=== PATIENT | male | born 1950 | race Caucasian/White ===

== ENCOUNTER 2023-02-13 11:29 | Outpatient (REF) | payer OTHER, SELFPAY | END 2023-02-13 11:30 | disposition home or self-care (01) | LOC: HO.MRI 11:29 | PROVIDERS: PCP Internal Medicine; Visit Provider Physician Assistant | DX: Z13.89 Encounter for screening for other disorder (principal) ==

== ENCOUNTER 2023-03-31 12:54 | Outpatient (REF) | payer BC, SELFPAY ==
--- NOTE | ~2023-03-31 | US_ITS ---
EXAMINATION: US EXTRACRANIAL CAROTID DUPLEX, BILATERAL CLINICAL INFORMATION: Neck pain with history of coronary artery disease. COMPARISON: None available. TECHNIQUE: Real-time ultrasound and Doppler techniques (integrating B-mode 2-D vascular images, Doppler spectral analysis and color-flow Doppler imaging) were utilized to interrogate the extracranial carotid arteries, the vertebral arteries and proximal subclavian arteries bilaterally. The degree of stenosis is determined by criteria similar to NASCET. FINDINGS: Right Side: 1. There is mild atherosclerotic plaque seen in the bifurcation/proximal ICA region. 2. The common carotid artery PSV proximally is 133 cm/s and distally 82 cm/s. 3. The proximal internal carotid artery velocities are 87 cm/s systolic and 27 cm/s diastolic. 4. The proximal external carotid artery PSV is 110 cm/s. 5. The vertebral artery shows antegrade flow. 6. The subclavian artery waveforms are normal. Left Side: 1. There is no atherosclerotic plaque seen in the bifurcation/proximal ICA region. 2. The common carotid artery PSV proximally is 104 cm/s and distally 88 cm/s. 3. The proximal internal carotid artery velocities are 80 cm/s systolic and 20 cm/s diastolic. 4. The proximal external carotid artery PSV is 103 cm/s. 5. The vertebral artery shows antegrade flow. 6. The subclavian artery waveforms are normal. US/US carotid duplex BI IMPRESSION: 1. RIGHT: Minimal, non-hemodynamically significant stenosis of the proximal right internal carotid artery corresponding to a 0-49% stenosis by velocity criteria. 2. LEFT: Normal left internal carotid artery without atherosclerotic plaque or hemodynamically significant stenosis.
== END 2023-03-31 12:55 | disposition home or self-care (01) ==
LOC: HO.US 12:54
PROVIDERS: PCP Internal Medicine; Visit Provider Internal Medicine
DX: I25.10 Atherosclerotic heart disease of native coronary artery without angina pectoris (principal); I65.21 Occlusion and stenosis of right carotid artery; M54.2 Cervicalgia
CPT/HCPCS: 93880

== ENCOUNTER 2024-03-22 10:00 | Outpatient (REF) | payer OTHER, SELFPAY ==
--- NOTE | ~2024-03-22 | US_ITS ---
EXAMINATION: US RETROPERITONEAL COMPLETE (RENAL) CLINICAL INFORMATION: Calculus of ureter. COMPARISON: None available. TECHNIQUE: Real-time imaging of the kidneys and bladder. FINDINGS: RIGHT KIDNEY: 12.3 x 5.7 x 6.3 cm (SAG x AP x TRV). The kidney is normal in size, contour, and echogenicity. Renal cortical thickness is normal. No renal calculi or hydronephrosis. A tiny lower perinephric fluid collection is noted. There are benign, simple cysts, the largest at the upper pole measuring 1.0 cm. These require no imaging follow-up. LEFT KIDNEY: 12.3 x 4.0 x 4.4 cm (SAG x AP x TRV). The kidney is normal in size and echogenicity. There are persistent lobulations. Renal cortical thickness is normal. No calculi or focal parenchymal lesions. No hydronephrosis. BLADDER: Well distended and normal. Bilateral ureteral jets are demonstrated. Prevoid bladder volume is 147.6 mL. Postvoid bladder volume is 15.0 mL. ADDITIONAL FINDINGS: Prostate dimensions are 6.5 x 5.2 x 5.4 cm (volume 4.6 mL). US/US retroperitoneal comp IMPRESSION: 1. A tiny lower right perinephric fluid collection is seen. 2. No renal mass, calculus or hydronephrosis is seen bilaterally. 3. There is prostatomegaly.
== END 2024-03-22 10:01 | disposition home or self-care (01) ==
LOC: HO.US 10:00
PROVIDERS: PCP Internal Medicine; Visit Provider Urology
DX: N20.1 Calculus of ureter (principal)
CPT/HCPCS: 76770

== ENCOUNTER 2025-02-09 14:25 | Outpatient (AMB) | payer MEDICARE, BC, SELFPAY ==
--- NOTE | 2025-02-09 13:44 | MHC.PC.OV ---
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 Accompanied by: Self / Same As Patient Allergies No Known Allergies [No Known Allergies*] Allergy (Verified 02/09/25 13:45) Tobacco use date assessed: 02/09/25 Fall risk assessment: 1 Fall in past year Last assessed Fall Risk: 02/09/25 Dental Screening Dental Screen Date: 02/09/25 Did you have a dental visit in the last 12 months?: Yes Did you have a dental problem in the last 6 months where you did not have access to dental care?: No HPI HPI Comments History of Present Illness Details The patient is a 74 year old male with a past medical history of CAD, htn, hld, BPH, cervical ddd, PTSD, insomnia presenting for follow up. Last seen by pcp in Sep. Also follows at [facility]. 100% disability. PCP Miladys Roche CV: on fenofibrate. Follows with cardiology. CAD h/o [place] in 1993. Followed previously with Dr Kirk, then [place]. Recent nuclear stress test. Latest Dr Thompson. Would like referral to cardiology Would like referral to neurology for bilateral upper extremity neuropathy. History of trauma to the neck in [place]. Chronic neck pain. [place]. Agent orange exposure BPH: on tamsulosin. Follows with Dr Monroe and Brina. MSK: on allopurinol, colchicine Colonoscopy 12/30/2017-5 years ROS see HPI PHYSICAL EXAM: GENERAL: Alert and oriented x 3. NAD EYES: EOMI. Anicteric. HENT: Moist mucous membranes. No scleral icterus. No cervical lymphadenopathy. LUNGS: Clear to auscultation bilaterally. CARDIOVASCULAR: Regular rate and rhythm. No murmur. No JVD. ABDOMEN: Soft, non-tender +bs EXTREMITIES: No edema. Non-tender. SKIN: No rashes or lesions. Warm. NEUROLOGIC: No focal neurological deficits. CN II-XII grossly intact PSYCHIATRIC: Cooperative. Appropriate mood and affect [facility] Medical History Cervical radiculopathy at C5 Surgical History History of colonoscopy (~12/30/17) Family History Mother No problems noted. Father No problems noted. Social History Housing: Apartment Patient Tobacco Use Status: Former Tobacco user e-Cigarette/Vaping Use: Former Use service: No Current occupational status: retired Cognitive needs: No Hearing needs: No Vision needs: Yes (rx glasses) Questionnaire PHQ-9 Over the last 2 weeks, how often have you been bothered by any of the following problems? 1. Little interest or pleasure in doing things: not at all 2. Feeling down, depressed, or hopeless: not at all 3. Trouble falling or staying asleep, or sleeping too much: not at all 4. Feeling tired or having little energy: not at all 5. Poor appetite or overeating: not at all 6. Feeling bad about yourself - or that you are a failure or have let yourself or your family down: not at all 7. Trouble concentrating on things, such as reading the newspaper or watching television: not at all 8. Moving or speaking so slowly that other people could have noticed. Or the opposite - being so fidgety or restless that you have been moving around a lot more than usual: not at all 9. Thoughts that you would be better off or of hurting yourself in some way: not at all Total score: 0 Source: Developed by Drs. Srinath Collins, Abbey Rico, Sulaiman Estrada and colleagues, with an educational gavino from [employer]. Thrive Questionnaire Date Thrive assessed: 02/09/25 I am a: Patient Within the past 12 months, did the food you bought not last and you didn't have the money to get more?: Never true Within the past 12 months, did you worry whether your food would run out before you got money to buy more?: Never true Do you have trouble paying for medicines?: No Do you have trouble getting transportation to medical appointments?: No Do you have trouble paying your heating and electricity bill?: No Do you have trouble taking care of your child, family member or friend?: No Do you have trouble with day-to-day activities such as bathing, preparing meals, shopping, managing finances, etc.?: No Are you currently unemployed and looking for a job?: No Are you interested in more education?: No THRIVE Score: 0 AUDIT C Alcohol Use Questionnaire (AUDIT-C) 1. How often do you have a drink containing alcohol?: Monthly or less 2. How many drinks containing alcohol do you have on a typical day when you are drinking?: 1 or 2 3. How often do you have six or more drinks on one occasion?: Less than monthly Total Score: 2 IVORY-7 AMB Questionnaire IVORY-7 Date IVORY - 7 assessed: 02/09/25 Feeling nervous, anxious, or on edge: 0 = Not at all Not being able to stop or control worryin = Not at all Worrying too much about different things: 0 = Not at all Trouble relaxin = Not at all Being so restless that it is hard to sit still: 0 = Not at all Becoming easily annoyed or irritable: 0 = Not at all Feeling afraid as if something awful might happen: 0 = Not at all Total IVORY-7 score (0-4 normal; 5-9 mild; 10-14 moderate; 15-21 severe): 0 Source: Developed by Drs. Srinath Collins, Abbey Rico, Sulaiman Estrada and colleagues, with an educational gavino from [employer]. Physical exam (Primary Care) Vital Signs: Last Vital Signs Temp 98.7 F 02/09/25 14:28 Pulse 59 02/09/25 14:28 BP 120/70 02/09/25 14:28 Pulse Ox 97 02/09/25 14:28 Oxygen Delivery Method Room Air 02/09/25 14:28 BMI result Body Mass Index 28.9 Tobacco/Smoking Status: Tobacco use Status Tobacco use date assessed 02/09/25 02/09/25 13:46 Patient Tobacco Use Status Former Tobacco user 02/09/25 14:38 e-Cigarette/Vaping Use Former Use 02/09/25 14:38 PHQ-9: PHQ-9 Score PHQ-9: Total score 0 02/10/25 08:57 Thrive Assessment: Date of Thrive Assessment Date Thrive assessed 02/09/25 02/09/25 13:46 Coding Level of Care Code New Pt Level 4 (19642) Complex EM visit Add On G2211 Diagnoses Benign prostatic hyperplasia, unspecified whether lower urinary tract symptoms present N40.0 Lower urinary tract symptom presence: unspecified whether lower urinary tract symptoms present History of [place] (myocardial infarction) I25.2 Coronary artery disease involving [place] coronary artery of [place] heart without angina pectoris I25.10 Associated angina: without angina Coronary Disease-Associated Artery/Lesion type: [place] artery [place] vs. transplanted heart: chickaloon heart Cervical radiculopathy at C5 M54.12 Numbness and tingling of both upper extremities R20.0; R20.2 Abnormal nuclear stress test R94.39 Assessment & Plan Assessment & Plan (1) BPH (benign prostatic hyperplasia): Code(s): N40.0 - Benign prostatic hyperplasia without lower urinary tract symptoms Category: Medical Qualifiers: Lower urinary tract symptom presence: unspecified whether lower urinary tract symptoms present Qualified Code(s): N40.0 - Benign prostatic hyperplasia without lower urinary tract symptoms (2) History of [place] (myocardial infarction): Code(s): I25.2 - Old myocardial infarction Category: Medical (3) CAD (coronary artery disease): Code(s): I25.10 - Atherosclerotic heart disease of [place] coronary artery without angina pectoris Category: Medical Qualifiers: Associated angina: without angina Coronary Disease-Associated Artery/Lesion type: [place] artery [place] vs. transplanted heart: [place] heart Qualified Code(s): I25.10 - Atherosclerotic heart disease of [place] coronary artery without angina pectoris (4) Cervical radiculopathy at C5: Code(s): M54.12 - Radiculopathy, cervical region Category: Medical (5) Numbness and tingling of both upper extremities: Code(s): R20.0 - Anesthesia of skin; R20.2 - Paresthesia of skin Category: Medical (6) Abnormal nuclear stress test: Code(s): R94.39 - Abnormal result of other cardiovascular function study Category: Medical Plan 74 year old to establish care Past medical, surgical, social records that were available reviewed. [facility] at the [facility] and [facility] Chronic bilateral upper extremity neuropathy-referral to neurology placed Referral to cardiology placed Chronic medical conditions stable Continues urology follow up Orders: Referrals Cardiology Referral I25.10 - Atherosclerotic heart disease of [place] coronary artery without angina pectoris, I25.2 - Old myocardial infarction, R94.39 - Abnormal result of other cardiovascular function study Neurology Referral R20.0 - Anesthesia of skin, R20.2 - Paresthesia of skin
[2025-02-09 14:28] VITALS: BP 120/70; PULSE 59; TEMP 37.1; O2SAT 97; BMI 28.9
--- OUTSIDE RECORDS SUMMARY | 2025-02-09 17:04 | XMS_ITS | Patient Health Record ---
Author Organization [facility] Address [address] [place] [address] Care Team Providers Care Cash Register Servicer Name Role Phone Oriana Naranjo M.D. Primary Care Provider Unavail able Srinath Santamaria Unavailable [phone] Andrea Roche MD Unavailable Unavailable Reason For Referral No Information Medications Medication SIG (Take, Route, Frequency, Duration) Notes Start Date End Date Status Finasteride 5 MG 1 tablet Orally Once a day Active Tamsulosin HCl 0.4 MG 1 capsule Orally O nce a day Active Venlafaxine HCl 75 MG 1 tablet with food Orally Once a day Active Allopurinol 300mg Ac tive Aspir-81 81mg Active Atorvastatin Calcium 80mg Active Fenofibrate 48mg Act estephanie Lisinopril 5mg Activ e Metoprolol Tartrate 100mg Active Sildenafil Citrate 100mg Active traZODone HCl 100mg Active Omeprazole 20mg Acti ve Social History Alcohol Screen Question Answer Notes Did you have a drink contain ing alcohol in the past year? Yes How often did you have a dri nk containing alcohol in the past year? 2 to 4 times a month (2 points) How many drinks did you have on a typical day when you were drinking in the past year? 5 or 6 drinks (2 points) How often did you have 6 or more drinks on one occasion in the past year? Monthly (2 points) Points 6 Interpretation Positive Section Notes: Nonsmoker; 6 pack of beer on Fri/Sat Nonsmoker; some beer on the weekends Problems Problem Type SNOMED Code ICD Code Onset Dates Problem Status W/U Status Risk Notes Problem 462278256 Encounter for screening for malignant neoplasm of colon (Z12.11) Active confirmed Problem 799354859 History of adenomatous polyp of colon (Z86.010) Active confirmed Problem 321234364 Long-term use of aspirin therapy (Z79.82) Active confirmed Plan Of Treatment Future Test Test Name Order Date UPPER GI ENDOSCOPY BALLOOON DILATION OF ESOPH 06/04/2012 COLONOSCOPY 06/04/2012 COLONOSCOPY 10/29/2017 Next Appt Details Provider Name:Srinath Santamaria , 02/28/2025 09:50:00 AM, [address] [facility], [address], [place], [address], Insurance Providers Payer Name Payer Address Payer Phone Subscriber Number Group Number Insured Name Patient Relationship to Insured Coverage Start Date Coverage End Date [place] [address] [place] [id number] OSBORNJONE Hernandez Self - patient is the insured [facility] [address] [place], [place] [id number] [phone] [id number] JONE OSBORN Self - patient is the insured Medical (General) History Medical History History ICD Code Tubular adenomas removed in 1997 and 07/2012; he had a negative colonoscopy in 1994; he had hyperplastic polyps removed in 2000 and in 2006--- also noted to have diverticulosis, hemorrhoids and a cecal angiodysplasia GERD--EGD with balloon dilat ion in 2011--hiatal hernia--- no esophageal stricture or ring, mild gastritis with biopsies negative for H. pylori--no esophagitis or Cobb's esophagus HI 1993, then a coronary art claire stent placed in 2007-fine since, and he is followed by Dr. Tapia Hypertension Denies DM,CVA,Lung disease,renal disease Gout Hyperlipidemia Anxiety--PTSD from [place]--wounded by a rtillery Sleep apnea--starting CPAP in 10/2017 BPH Surgical History Surgery Date(Month/Year)
== END 2025-02-09 15:11 | disposition home or self-care (01) ==
LOC: HO.HMCHD 14:25
PROVIDERS: PCP Internal Medicine; Visit Provider Internal Medicine
DX: N40.0 Benign prostatic hyperplasia without lower urinary tract symptoms (principal); I25.2 Old myocardial infarction; I25.10 Atherosclerotic heart disease of native coronary artery without angina pectoris; M54.12 Radiculopathy, cervical region; R20.0 Anesthesia of skin; R20.2 Paresthesia of skin; R94.39 Abnormal result of other cardiovascular function study

== ENCOUNTER → 2025-02-09 14:25 | Outpatient (BNVA) | payer OTHER, SELFPAY | PROVIDERS: PCP Internal Medicine; Visit Provider Internal Medicine | DX: N40.0 Benign prostatic hyperplasia without lower urinary tract symptoms (principal); I25.2 Old myocardial infarction; I25.10 Atherosclerotic heart disease of native coronary artery without angina pectoris; M54.12 Radiculopathy, cervical region; R20.0 Anesthesia of skin; R20.2 Paresthesia of skin; R94.39 Abnormal result of other cardiovascular function study | CPT/HCPCS: 99202 ==

== ENCOUNTER 2025-05-01 13:24 | Outpatient (AMB) | payer BC, OTHER, SELFPAY ==
[2025-05-01 13:33] VITALS: BP 130/74; PULSE 57; BMI 28.9
--- NOTE | 2025-05-01 13:33 | MHC.OFFVIS ---
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 Stand Grinder Required: No Accompanied by: Self / Same As Patient Allergies No Known Allergies (No Known Allergies*) Allergy (Verified 02/09/25 13:45) Medication List - Last Reconciled 05/01/25 by Ashu Norwood MD allopurinol 100 mg PO DAILY aspirin (Adult Low Dose Aspirin) 81 mg PO DAILY atorvastatin (Lipitor) 80 mg PO BEDTIME colchicine 0.6 mg PO DAILY fenofibrate nanocrystallized 48 mg PO DAILY hydroxyzine pamoate mg PO lisinopril 5 mg PO DAILY methocarbamol 750 mg PO BID PRN metoprolol succinate ER 100 mg PO BID omeprazole 20 mg PO DAILY sildenafil (Viagra) 100 mg PO DAILY PRN testosterone 1 tube transdermal QAM trazodone 50 mg PO BEDTIME PRN HPI Comments Details: [age] year gentleman who is here for 1st office visit. He was previously seen Dr. Misha taylor and underwent angioplasty in 1993 and PCI to right coronary artery in 2006. 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 He said his presentation for ACS was indigestion like feeling which he has not experienced since then. He is physically quite active and walks 4 miles per day. He also does uphill walk and hike. He is saying he has no chest discomfort, indigestion like feeling or dyspnea. He recently underwent exercise stress testing at [facility] where he was able to exercise to 10 metabolic equivalents and had some ischemic appearing EKGs changes reportedly. He has nuclear perfusion imaging showed small inferolateral ischemia and infarct. In his day-to-day life he has no symptoms currently. He is taking aspirin regularly. He is on atorvastatin 80 mg his last LDL was 70. [facility] Medical History (Updated 05/01/25 @ 20:21 by Ashu Norwood MD) Cervical radiculopathy at C5 Surgical History (Updated 05/01/25 @ 13:44 by Chey Scanlon [facility]) Stented coronary artery History of colonoscopy (~12/30/17) Family History Mother No problems noted. Father No problems noted. 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) Housing: Apartment Alcohol intake: never Patient Tobacco Use Status: Former Tobacco user e-Cigarette/Vaping Use: Former Use service: No Current occupational status: retired Cognitive needs: No Hearing needs: No Vision needs: Yes (rx glasses) Review of Systems Const Denies chills, Denies fatigue, Denies fever(s), Denies frequent falls, Denies weakness, Denies weight gain and Denies weight loss ENT Denies dizziness Card Denies chest pain, Denies leg edema, Denies lightheadedness, Denies palpitations, Denies dyspnea, Denies dyspnea on exertion and Denies orthopnea Resp Denies cough, Denies dyspnea and Denies dyspnea on exertion GI Denies bloating and Denies change in bowel habits Musc Denies muscle weakness, Denies numbness and Denies tingling Neuro Denies dizziness, Denies frequent falls, Denies numbness, Denies tingling and Denies weakness Endo Denies fatigue and Denies palpitations Physical Exam Vital Signs: Last Vital Signs Pulse 57 05/01/25 13:33 BP 130/74 05/01/25 13:33 BMI result Body Mass Index 28.9 GENERAL APPEARANCE: in no acute distress, pleasant. NECK: no carotid bruit, no jugular venous distention. SKIN: no suspicious lesions, warm and dry. HEART: no murmurs, regular rate and rhythm. LUNGS: clear to auscultation bilaterally. ABDOMEN: soft, nontender. EXTREMITIES: no edema. PERIPHERAL PULSES: equal. NEUROLOGIC: No gross deficits, AAO X 3 Office Procedures EKG Details: Sinus bradycardia 57 beats per minute, premature ventricular complexes, inferior T-wave inversions, QTC 426 milliseconds. [id number], Complete Assessment & Plan Assessment & Plan (1) CAD (coronary artery disease): Code(s): I25.10 - Atherosclerotic heart disease of [place] coronary artery without angina pectoris Category: Medical Qualifiers: Coronary Disease-Associated Artery/Lesion type: [place] artery [place] vs. transplanted heart: [place] heart Associated angina: without angina Qualified Code(s): I25.10 - Atherosclerotic heart disease of [place] coronary artery without angina pectoris (2) Abnormal nuclear stress test: Code(s): R94.39 - Abnormal result of other cardiovascular function study Category: Medical (3) Preop cardiovascular exam: Code(s): Z01.810 - Encounter for preprocedural cardiovascular examination Category: Medical Plan [age] year gentleman who is here for 1st office visit. He has known history of coronary artery disease and underwent RCA PCI in 2006. Previous to that 1994 he presented with ACS and apparently had angioplasty done. He said his ACS presentation was an indigestion like feeling which he has not felt since then. He is quite active physically and exercises regularly. He had nuclear perfusion imaging recently done at [facility] which showed inferolateral ischemia infarct. 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 He has day-to-day life he has no symptoms. Adding ezetimibe for elevated LDL of 70. His target is 55 or below. He is intermediate risk for perioperative complications and can proceed with colonoscopy. He will see us back in few months. 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 Thank you for allowing me to participate in the care of your patient. Please feel free to contact me if you have any questions. Medications: New ezetimibe 10 mg PO DAILY 90 tabs 3RF I25.10 - Atherosclerotic heart disease of [place] coronary artery without angina pectoris Coding Level of Care Code New Pt Level 4 (24012) Diagnoses Coronary artery disease involving [place] coronary artery of [place] heart without angina pectoris I25.10 Coronary Disease-Associated Artery/Lesion type: [place] artery [place] vs. transplanted heart: [place] heart Associated angina: without angina Abnormal nuclear stress test R94.39 Preop cardiovascular exam Z01.810 CPT Codes EKG - CPT: [id number]-[id number], Complete ([id number])
--- OUTSIDE RECORDS SUMMARY | 2025-05-01 14:45 | XMS_ITS | Encounter Summary ---
Author Organization [facility] Address [address] [place] [address] [place] [phone] Phone Care Team Providers Care Hull Molder Name Role Phone Pcp, Unknown Unavailable Unavailable Andrea Roche MD Primary Care Provider + Encounter Details Date Type Department Care Team (Late st Contact Info) Description 02/22/2024 Procedure Pass [facility] [address] [place] [address] Social History Tobacco Use Types Packs/Day Years Used Date Smoking Tobacco: Never Smokeless Tobacco: Never Alcohol Use Standard Drinks/Week Comments Yes 6 (1 standard drink = 0.6 oz pur e alcohol) Education Answer Date Recorded Are you interested in more education? Not on tameka e 01/02/2023 Are you concerned about learning? Not on file 01/02/2023 No 01/02/2023 No 01/02/2023 Digital Access Answer Date Recorded No 01/31/2023 No 01/31/2023 Reliable internet access at home? Not on file 01/31/2023 Device with a working camera? Not on file Intimate Partner Violence Answer Date R ecorded Are you denied basic needs s uch as food, clothing, or medical care? No 02/10/2024 In the past 12 months have y ou been in a relationship with a person who hurts, threatens, or tries to control you? No 02/10/2024 Are you denied basic needs s uch as food, clothing, or medical care? No 02/10/2024 In the past 12 months have y ou been in a relationship with a person who hurts, threatens, or tries to control you? No 02/10/2024 Sex and Gender Information Value Date Recorded Sex Assigned at Male 05/04/2020 8:41 AM EDT Legal Sex Male 8:07 AM EDT Gender Identity Male 05/04/2020 8:41 AM EDT Sexual Orientation Not on file documented as of this encounter Plan of Treatment Upcoming Encounters Date Type Department Care Team (Late st Contact Info) Description 05/24/2025 12:30 PM EDT Office Visit [facility] [address] [facility] 3rd Floor, [address] [place] [address] Yon Thompson DO [address] [facility] [address] [place] [address] [email or web address] 11/01/2025 11:00 AM EST Office Visit [facility] Department of Neurology [address] [facility], 8th Floor, [address] [place] [address] Donald Dorsey MD [address] [place] [address] [email or web address] documented as of this encounter Visit Diagnoses Not on filedocumented in this encounter Care Teams Hull Molder Relationship Specialty Start Date End Date Andrea Roche MD [address] [place] [phone] PCP - General Internal Medicine 05/04/20 Pcp, Unknown 04/22/19 documented as of this encounter Additional Source Comments The information contained in this document represents components of the legal health record. It is not the complete legal health record.[facility]
--- OUTSIDE RECORDS SUMMARY | 2025-05-01 14:45 | XMS_ITS | Encounter Summary ---
Author Organization [facility] Address [address] [place] [phone] Phone Care Team Providers Care Field Advisor Name Role Phone Unknown, Unknown Primary Care Provider Carmen mclaughlin Pcp, Unknown Unavailable Unavailable Andrea Roche MD Primary Care Provider + Reason for Referral * MRI/CAT Scan - Closed Specialty Diagnoses / Procedures Referred By Contac t Referred To Contact Radiology Diagnoses Research subject Procedures PET/CT Limited Other/Research Mendoza Mathews MD Phone: tel: fax: [email or web address] Referral ID Status Reason Start Date Expiration Date Visits Re quested Visits Authorized [id number] Closed 05/03/2019 05/02/2020 1 1 Encounter Details Date Type Department Care Team (Late st Contact Info) Description 05/03/2019 Ancillary Orders [facility] PET Imaging, [place] [address] [place] [address], [address] [place] [address] Mendoza Mathews MD [address] [place] [phone] [email or web address] Research subject Social History Tobacco Use Types Packs/Day Years Used Date Smoking Tobacco: Never Assessed Sex and Gender Information Value Date Recorded Sex Assigned at Male 05/04/2020 8:41 AM EDT Legal Sex Male 8:07 AM EDT Gender Identity Male 05/04/2020 8:41 AM EDT Sexual Orientation Not on file documented as of this encounter Plan of Treatment Upcoming Encounters Date Type Department Care Team (Late st Contact Info) Description 05/24/2025 12:30 PM EDT Office Visit [facility] [address] [facility] [address], [address] [place] [address] Yon Thompson DO [address] [facility] [address] [place] [address] 11/01/2025 11:00 AM EST Office Visit [facility] Department of Neurology [address] [facility], 8th Floor, [address] [place] [address] Donald Dorsey MD [address] [place] [address] [email or web address] documented as of this encounter Results * PET/CT Limited Other/Research (05/04/2019 2:43 PM EDT) Anatomical Region Laterality Modality Positron Emissio n Tomography (PET) 05/18/2019 3:33 PM EDT Narrative 05/18/2019 3:48 PM EDT The research scan was completed. No diagnostic images were acquired. Procedure Note Jose Ramirez MD - 05/18/2019 The research scan was completed. No diagnostic images were acquired. us Mendoza Samy Mathews MD IMG NM PET Final Resu lt documented in this encounter Visit Diagnoses Diagnosis Research subject Research subject documented in this encounter Additional Health Concerns Infection Onset Date Last Indicated Resolved Time CoV-Risk Comment:Per note documentation 02/10/2024 02/10/2024 7:28 AM EDT CDiff-Risk 02/10/2024 02/10/2024 02/11/2024 12:1 4 AM EDT documented as of this encounter Care Teams Field Advisor Relationship Specialty Start Date End Date Unknown, Unknown, MD PCP - General 04/22/19 05/03/20 Andrea Roche MD [address] [place] [phone] PCP - General Internal Medicine 05/04/20 Pcp, Unknown 04/22/19 documented as of this encounter Additional Source Comments The information contained in this document represents components of the legal health record. It is not the complete legal health record.[facility]
--- OUTSIDE RECORDS SUMMARY | 2025-05-01 14:45 | XMS_ITS | Encounter Summary ---
Author Organization [facility] Address [address] [place], [place] [phone] Phone Care Team Providers Care Manager Coding Name Role Phone Pcp, Unknown Unavailable Unavailable Andrea Roche MD Primary Care Provider + Encounter Details Date Type Department Care Team (Late st Contact Info) Description 02/10/2024 Procedure Pass [facility] Scan - [address] [address] Social History Tobacco Use Types Packs/Day Years [...] on file documented as of this encounter Functional Status * Calculated C-SSRS Risk Score (Lifetime/Recent) Answer Date of Assessment Author No Risk Indicated 02/10/2024 4:44 PM EDT Toribio Day RN * [place] Suicide Severity Rating Scale (Screener/Recent Self-Report) Question Answer Date of Assessment Author 1. Wish to be (Past 1 Month) No 024 4:44 PM EDT Toribio Peacock RN 2. Non-Specific Active Suici emelina Thoughts (Past 1 Month) No 02/10/2024 4:44 PM EDT Jeff Peacock RN 6. Suicidal Behavior (Lifetime) No 4 4:44 PM EDT Toribio Peacock RN documented as of this encounter Plan of Treatment Upcoming Encounters Date Type Department Care Team (Late st Contact Info) Description 05/24/2025 12:30 PM EDT Office Visit [facility] [address] [place] [address] 3rd Floor, [address] [place] [address] Yon Thompson DO [address] [place] [address] [place] [address] [email or web address] 11/01/2025 11:00 AM EST Office Visit [facility] Department of Neurology [address] [place] [address], 8th Floor, [address] [place] [address] Donald Dorsey MD [address] [place] [address] [email or web address] documented as of this encounter Visit Diagnoses Not on filedocumented in this encounter Additional Health Concerns Infection Onset Date Last Indicated Resolved Time CoV-Risk Comment:Per note documentation 02/10/2024 02/10/2024 7:28 AM EDT CDiff-Risk 02/10/2024 02/10/202402/11/2024 12:1 4 AM EDT documented as of this encounter Care Teams Manager Coding Relationship Specialty Start Date End Date Andrea Roche MD [address] [place] [id number] PCP - General Internal Medicine 05/04/20 Pcp, Unknown 04/22/19 documented as of this encounter Additional Source Comments The information contained in this document represents components of the legal health record. It is not the complete legal health record.[facility]
--- OUTSIDE RECORDS SUMMARY | 2025-05-01 14:45 | XMS_ITS | Encounter Summary ---
Author Organization [facility] Address [address] [facility] [address] [place] [phone] Phone Care Team Providers Care Account Services Specialist Name Role Phone Unknown, Unknown Primary Care Provider Carmen mclaughlin Pcp, Unknown Unavailable Unavailable Andrea Roche MD Primary Care Provider + Encounter Details Date Type Department Care Team (Late st Contact Info) Description 05/03/2019 Ancillary Orders [facility] Department of Neurology [address] [place], [place] [address] [place] [address] Mendoza Mathews MD [address] [place] [address] [email or web address] Social History Tobacco Use Types Packs/Day Years [...] Description 05/24/2025 12:30 PM EDT Office Visit [facility] [address] [place] [address] 3rd Floor, [address] [place], [place] [phone] Yon Thompson DO [address] [facility] [address] [place] [address] [email or web address] 11/01/2025 11:00 AM EST Office Visit [facility] Department of Neurology [address] [facility], 8th Floor, [address] [place] [address] Donald Dorsey MD [address] [place] [address] [email or web address] documented as of this encounter Visit Diagnoses Not on filedocumented in this encounter Additional Health Concerns Infection Onset Date Last Indicated Resolved Time CoV-Risk Comment:Per note documentation 02/10/2024 02/10/2024 7:28 AM EDT CDiff-Risk 02/10/2024 02/10/2024 02/11/2024 12:1 4 AM EDT documented as of this encounter Care Teams Account Services Specialist Relationship Specialty Start Date End Date Unknown, Unknown, MD PCP - General 04/22/19 05/03/20 Andrea Roche MD [address] [place] [phone] PCP - General Internal Medicine 05/04/20 Pcp, Unknown 04/22/19 documented as of this encounter Additional Source Comments The information contained in this document represents components of the legal health record. It is not the complete legal health record.[facility]
--- OUTSIDE RECORDS SUMMARY | 2025-05-01 14:46 | XMS_ITS | Clinical Summary ---
Author Organization [facility] Address [address] [place] [address] [place], [place] [id number] Phone Care Team Providers Care Lab Support Service Tech Name Role Phone Pcp, Unknown Unavailable Unavailable Andrea Rcohe MD Primary Care Provider + Allergies Active Allergy Reactions Criticality Noted Date Comments Cyclobenzaprine Other (See Comments) Medium 12/05/2022 Influenza Vaccine Tr-S 09 (Pf) 05/04/2020 Influenza Vaccine Tr-S 11 (Pf) 09/12/2010 Other reaction(s): Influenza-like illness Medications aspirin 81 MG EC tablet Take 81 mg by mouth daily. Active allopurinol (ZYLOPRIM) 300 MG tablet Take 150 mg by mouth daily. Active atorvastatin (LIPITOR) 80 MG tablet Take 80 mg by mouth nightly at bedtime. Active budesonide-form oterol (SYMBICORT) 160-4.5 mcg/actuation inhaler Inhale 2 puffs into the lungs 2 (two) times a day. Active colchicine (COLCRYS) 0.6 mg tabletIndicatio ns:acute gouty arthritis Take 0.6 mg by mouth as needed (gout flare). Indications: acute inflammation of the joints due to gout attack Active fenofibrate (TRICOR) 48 MG tablet Take 48 mg by mouth daily. Active lisinopril (PRINIVIL,ZESTR IL) 5 MG tabletIndicatio ns:hypertension Take 5 mg by mouth daily. Indications: high blood pressure Active metoprolol tartrate (LOPRESSOR) 100 MG tabletIndicatio ns:hypertension Take 100 mg by mouth 2 (two) times a day. Indications: high blood pressure Active omeprazole (PRILOSEC) 20 mg TbEC Take 20 mg by mouth daily before breakfast. Active traZODone (DESYREL) 100 MG tablet Take 100 mg by mouth nightly at bedtime as needed. Active cyclobenzaprine (FLEXERIL) 10 MG tablet Take 1 tablet (10 mg total) by mouth 3 (three) times a day as needed. 15 tablet 0 Active Additional Information Patient not taking.Reported on 12/02/2024 hydrOXYzine (VISTARIL) 25 MG capsule 25 mg. 3 Active sildenafiL (VIAGRA) 100 mg tablet 100 mg. 3 Active testosterone (ANDROGEL) 1 % (50 mg/5 gram) transdermal gel packet Place 50 mg of testosterone onto the skin daily. 4 Active cefadroxil (DURICEF) 500 MG capsule Take 500 mg by mouth. 4 Active fluticasone propion-salmete roL (ADVAIR DISKUS) 250-50 mcg/dose DISKUS Inhale into the lungs. 5 Active methocarbamoL (ROBAXIN) 750 MG tablet Take 750 mg by mouth. 4 Active Active Problems Problem Noted Date Diagnosed Date Mild mitral regurgitation 08/24/2024 Assessment & Plan (11/02/2024 3:01 PM EST): Most recent echo showed mild mitral and tricuspid insufficiency. Patient asymptomatic. We can repeat echo in 1 year to monitor. Assessment & Plan (08/24/2024 4:02 PM EST): Most recent echo showed mild mitral and tricuspid insufficiency. Patient asymptomatic. We can repeat echo in 1 year to monitor. Prostatitis 02/12/2024 Assessment & Plan (02/22/2024 1:46 PM EDT): This patient had aqua ablation of the prostate but then ended up with a urinary tract infection afterwards Assessment & Plan (02/12/2024 10:42 AM EDT): Discussed case with his urologist who believes this could be prostatitis. Has had 6 infections this year. Urine growing klebsiella. Will continue ceftriaxone through this evening, and if fever curve improves will switch to oral quinolone on d/c tomorrow. Will give a prolonged course for prostatitis rather than UTI Acute renal injury 02/10/2024 Assessment & Plan (02/12/2024 10:40 AM EDT): From baseline 1.2 to 3.8 on admission, down to 1.6 today Continue hydration Avoid nephrotoxic meds Discussed with his urologist, recommended ensuring there's no urinary retention, if there's not, then would treat as prostatitis. Would switch to quinolone on d/c Atherosclerosis of [place] co ronary artery of [place] heart without angina pectoris 01/16/2023 Assessment & Plan (12/02/2024 8:51 AM EDT): He has had multiple interventions dating back to the 90s and had a stent in 2008 but EF is normal and he is not complaining of any angina. He does have mild ischemia in the inferior wall and a small area on recent nuclear stress test imaging. We will treat this conservatively Assessment & Plan (11/02/2024 3:00 PM EST): At patient's last follow-up here patient did not have any symptoms concerning for angina however he was requesting an updated stress test. Patient's ETT patient had EKG changes no anginal symptoms. During patient's nuclear stress test patient had 2 out of 10 chest pain without EKG changes. Patient's nuclear imaging was abnormal. Conclusion-Mild ischemia seen in inferior lateral wall along with infarction. Left ventricular ejection fraction is 58% Recommendation ; Abnormal myocardial perfusion stress test. Clinical correlation suggested. Patient denies symptoms concerning for angina today. However patient did have 2 out of 10 chest pain during stress test. Patient reports walks very routinely up hills without symptoms. He does report shortness of breath however this has been chronic stable for years and has not changed. I am going to discuss with Dr. Thompson plan for patient. Continue aspirin 81 mg daily. Continue metoprolol tartrate 100 mg twice daily. I went over strict ED precautions with patient regarding anginal symptoms. Assessment & Plan (08/24/2024 3:54 PM EST): No current symptoms concerning for angina. Patient is requesting a repeat stress test at our facility to have on file. We will get an updated ETT. I have requested the patient hold his metoprolol 24 hours before his ETT. ETT ordered. Continue aspirin 81 mg daily. Continue metoprolol tartrate 100 mg twice daily. Assessment & Plan (02/22/2024 1:46 PM EDT): I have no echo on record for this patient status post PCI done a long time ago I have ordered an echocardiogram for him and will review at next visit in 6 months unless something is urgent. Assessment & Plan (01/16/2023 8:56 AM EDT): He had PCI in 2016 he walks and hikes and does visit her vigorous activity on a daily basis without any issues stress test and echo were essentially normal in August Benign essential hypertension 01/16/2023 Overview (12/02/2024): Mildly elevated but recheck was normal Assessment & Plan (12/02/2024 8:51 AM EDT): Goal should be less than 130 systolic Assessment & Plan (11/02/2024 3:01 PM EST): Blood pressure in the office today 130/76. Patient routinely measures blood pressure at home and it is usually in the 120s over 80s. Patient educated on HTN pathophysiology, htn medication, importance of low salt DASH heart healthy diet, exercise and home B/P monitoring. No medication changes at this time. Continue lisinopril 5 mg daily. Assessment & Plan (08/24/2024 3:55 PM EST): Blood pressure today in the office 130/80. Patient routinely measures blood pressure at home and it is usually in the 120s over 80s. Patient educated on HTN pathophysiology, htn medication, importance of low salt DASH heart healthy diet, exercise and home B/P monitoring. No medication changes at this time. Continue lisinopril 5 mg daily. Assessment & Plan (02/22/2024 1:46 PM EDT): Well-controlled to the guidelines. Assessment & Plan (01/16/2023 8:55 AM EDT): Blood pressures well controlled at 134 mmHg today heart rate is about 60 Pure hypercholesterolemia 01/16/2023 Assessment & Plan (12/02/2024 8:52 AM EDT): His lipid profile is in excellent shape except for his HDL which is low despite exercising on a regular basis. Assessment & Plan (11/02/2024 3:01 PM EST): Patient reports PCP routinely checks lipid panel. I have requested these lab results as I do not have one on file. Continue atorvastatin 80 mg daily. Continue fenofibrate 48 mg daily. Assessment & Plan (08/24/2024 4:01 PM EST): Patient reports his PCP routinely checks his lipid panel twice a year. Patient reports LDL was at goal below 70. Advised at least yearly lipid panel checks with PCP. Continue atorvastatin 80 mg daily. Continue fenofibrate 48 mg daily. Assessment & Plan (02/22/2024 1:46 PM EDT): LDL was recently checked at the [place] and looked well-controlled Assessment & Plan (01/16/2023 8:55 AM EDT): He is on a statin agent but will need some lab work which I have ordered for him. Encounters Date Type Department Care Team Description 02/13/2025 Transcribe Orders [facility] Neurology [address] [place] [address] Britt Murrieta [place] Paresthesia of skin (Primary Dx) from Last 3 Months Social History Tobacco Use Types Packs/Day Years Used Date Smoking Tobacco: Never Smokeless Tobacco: Never Tobacco Cessation:Counseling Given: Not Answered Alcohol Use Standard Drinks/Week Comments Yes 6 [...] AM EDT Sexual Orientation Not on file Last Filed Vital Signs Vital Sign Reading Time Taken Comments Blood Pressure 140/90 12/02/2024 8:31 AM EDT Pulse 66 12/02/2024 8:31 AM EDT Temperature 37.6 C (99.7 F) 02/13/2024 7:32 AM EDT Respiratory Rate 18 02/13/2024 9:00 AM EDT Oxygen Saturation 99% 12/02/2024 8:31 AM EDT Inhaled Oxygen Concentration - - Weight 99.3 kg (219 lb) 12/02/2024 8:31 AM EDT Height 182.9 cm (6' 0.01 ) 12/02/2024 8:31 AM ED T Body Mass Index 29.69 12/02/2024 8:31 AM EDT Plan of Treatment Upcoming Encounters Date Type Department Care Team (Late st Contact Info) Description 05/24/2025 12:30 PM EDT Office Visit [facility] [address] 3rd Floor, [address] [place] [address] Yon Thompson, [address] [facility] [address] [place] [address] 11/01/2025 11:00 AM EST Office Visit [facility] Department of Neurology [address] [facility] [address] [facility], 8th Floor, [address] [place] [address] Donald Dorsey MD [address] [place] [address] [email or web address] Maintenance Due Date Last Done Comments DEPRESSION SCREENING 1961 HEPATITIS C SCREENING 1967 COLOGUARD 1994 COLONOSCOPY 1994 COLORECTAL CANCER SCREENING 1994 FIT TEST 1994 FOBT 1994 SIGMOIDOSCOPY 1994 VIRTUAL COLONOSCOPY 1994 PNEUMOCOCCAL VACCINES (50+ years) (1 of 1 - PCV) 1999 Adult Td,Tdap Booster 02/10/2018 02/11/2008 COVID-19 VACCINE ( - season) 2024 RSV VACCINE (1 - 1-dose 75+ series) 2024 CREATININE LEVEL 02/12/2025 02/13/2024, 03/2024, 02/11/2024, Additional history exists POTASSIUM LEVEL 02/12/2025 02/13/2024, 03/2024, 02/11/2024, Additional history exists BLOOD PRESSURE 06/04/2025 12/02/2024 ZOSTER VACCINES Completed 02/19/2021, 06/21/2020 SMOKING STATUS SCREENING (Once After 26 Yrs) Completed 12/02/2024 HEPATITIS A VACCINES Aged Out No long er eligible based on patient's age to complete this topic HIB VACCINES Aged Out No longer eligi ble based on patient's age to complete this topic MENINGOCOCCAL VACCINES (ACWY) Aged Out No longer eligible based on patient's age to complete this topic MENINGOCOCCAL VACCINES (B) Aged Out N o longer eligible based on patient's age to complete this topic Medical Devices Not on file Procedures Procedure Name Priority Date/Time Associated Diagnosis Comments BASIC METABOLIC PANEL Routine 02/13/2024 6:26 AM EDT from Last 3 Months or Most Recently Relevant to Health Maintenance Results * (ABNORMAL) Basic metabolic panel (02/13/2024 6:26 AM EDT) SODIUM 143 133 - 146 mmol/L [facility] CHLORIDE 106 96 - 108 mmol/L [facility] POTASSIUM 3.4 3.3 - 5.1 mmol/L [facility] CO2 26 21 - 35 mmol/L [facility] BUN 17 6 - 19 mg/dL [facility] CREATININE 1.30 0.5 - 1.5 mg/dL [facility] GLUCOSE 109(H) 70 - 99 mg/dL [facility] CALCIUM 9.0 8.4 - 10.3 mg/dL [facility] EGFR 58(L) >59 mL/min/1.7 3m2 [facility] Comment:Estimated glomerular filtration rate calculated using the CKD-EPI refit equation. ANION GAP 14 10 - 20 mmol/L [facility] Blood 02/13/2024 6:26 AM EDT 02/13/2024 6:38 AM EDT Miriam Campbell MD LAB BLOOD ORDERABLES Final Result [facility] [address] [place], [place] [phone] from Last 3 Months or Most Recently Relevant to Health Maintenance Insurance [facility] MEDICARE PART A & B [facility] MEDICARE PART A & B [facility] MEDICARE [facility] A & B [facility] MEDICARE PART A & B [facility] MEDICARE PART A & B [facility] MEDICARE PART A & B [facility] Member Subscriber Plan / Payer (Ef fective 2011-Present) Name:Toribio Moran Relation to Subscriber:Self Name:Toribio Moran Payer ID:[id number] (NAIC) Group ID:[id number] Type:PPO Address: [address] MEDICARE PART A & B [facility] Member Subscriber Plan / Payer (Ef fective 2011-Present) Name:Toribio Moran Relation to Subscriber:Self Name:Toribio Moran Payer ID:[id number] (NAIC) Group ID:[id number] Type:PPO Address: [address] MEDICARE PART A [place] [place] [address] [place]IC[place] A [place] [id number] [place] [id number] [place] [id number] [place] [id number] [place] [id number] [place] [id number] [place] [id number] Advance Directives For more information, please contact: [phone] (9AM - 5PM [facility], Thursday-Thursday) * Full Code (Latest Code Status on File) Date Activated Date Inactivated Comments 02/10/2024 10:59 PM Question Answer Comments Code Status Confirmed With: Patient Care Teams Lab Support Service Tech Relationship Specialty Start Date End Date Andrea Roche MD [address] [place] [address] PCP - General Internal Medicine 05/04/20 Pcp, Unknown 04/22/19 Additional Source Comments The information contained in this document represents components of the legal health record. It is not the complete legal health record.[facility]
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
== END 2025-05-01 14:29 | disposition home or self-care (01) ==
LOC: HO.HCS 13:25
PROVIDERS: PCP Internal Medicine; Visit Provider Internal Medicine Cardiovascular Disease
DX: I25.10 Atherosclerotic heart disease of native coronary artery without angina pectoris (principal); R94.39 Abnormal result of other cardiovascular function study; Z01.810 Encounter for preprocedural cardiovascular examination
CPT/HCPCS: 93010; 99204

== ENCOUNTER → 2025-05-01 13:24 | Outpatient (BNVA) | payer OTHER, BC, SELFPAY | PROVIDERS: PCP Internal Medicine; Visit Provider Internal Medicine Cardiovascular Disease | DX: I25.10 Atherosclerotic heart disease of native coronary artery without angina pectoris (principal) | CPT/HCPCS: 93005 ==

== ENCOUNTER 2025-06-15 13:47 | Outpatient (AMB) | payer MEDICARE, BC, SELFPAY ==
--- NOTE | 2025-06-15 13:44 | A.OFFPC_ITS ---
Vital Signs 06/15/25 14:04 Height 6 ft Weight 221 lb BMI 30.0 BP 132/74 Blood Pressure Location Lt brachial Position Sitting Respiration 18 Pulse 52 Pulse Source Pulse Oximeter Temp 97.7 F Temp Source Temporal Artery Scan Pulse Oximetry (%) 98 Oxygen Delivery Method Room Air Intake Visit Reasons: trf of care /Dr siddiqi [employer] Operator Required: No Accompanied by: Self / Same As Patient Allergies No Known Allergies (No Known Allergies*) Allergy (Verified 06/15/25 13:44) Medication List - Last Reconciled 06/15/25 by Vincent Santos MD allopurinol 100 mg PO DAILY aspirin (Adult Low Dose Aspirin) 81 mg PO DAILY atorvastatin (Lipitor) 80 mg PO BEDTIME colchicine 0.6 mg PO DAILY ezetimibe 10 mg PO DAILY fenofibrate nanocrystallized 48 mg PO DAILY fluticasone propionate 250 mcg/actuation 1 inh inhalation BID hydroxyzine pamoate mg PO lisinopril 5 mg PO DAILY methocarbamol 750 mg PO BID PRN metoprolol succinate ER 100 mg PO BID omeprazole 20 mg PO DAILY sildenafil (Viagra) 100 mg PO DAILY PRN testosterone 1 tube transdermal QAM trazodone 50 mg PO BEDTIME PRN Tobacco use date assessed: 02/09/25 Fall risk assessment: No Falls in past year Last assessed Fall Risk: 06/15/25 Dental Screening Dental Screen Date: 02/09/25 Did you have a dental visit in the last 12 months?: Yes Did you have a dental problem in the last 6 months where you did not have access to dental care?: No Was dental information given to patient?: Patient has dentist HPI HPI Comments History of Present Illness Details The patient is a 74-year-old male presenting with a follow-up visit. He reports having a colonoscopy planned with Dr. Santamaria next week, which is expected to be his last due to his age approaching 75. Historically, the patient has undergone routine colonoscopies for preventative health care. He reports taking several medications for chronic health issues. The patient mentions having a history of gout, managed with daily allopurinol and as-needed colchicine. He has also been diagnosed with coronary artery disease, for which he takes aspirin 81 mg. Hyperlipidemia and hypertriglyceridemia are managed with atorvastatin, ezetimibe, and recently added fenofibrate. The patient reports chronic kidney disease stage 3A, noting a glomerular filtration rate around 56 and serum creatinine at 1.3, presumably monitored primarily by the [place]. He was informed that controlling his blood pressure is crucial to prevent any deterioration. Additionally, the patient underwent a surgical procedure for benign prostatic hyperplasia and receives testosterone supplementation. For gastroesophageal reflux disease, he takes omeprazole. He discusses having PTSD and a sleep disorder for which hydroxyzine and trazodone are taken as needed for sleep. Of note, the patient mentions having had an adverse experience during a nuclear stress test at a [place] facility, leading to some distrust and preference for external healthcare providers now due to multiple bad experiences in cardiology, urology, and neurology over the years. His neck pain is being evaluated, with imaging and potential plan involving [facility]. Medical History: - Coronary Artery Disease - Hyperlipidemia - Gout - Hypertension - Chronic Kidney Disease, Stage 3A - Gastroesophageal Reflux Disease - Benign Prostatic Hyperplasia - Post-Traumatic Stress Disorder - Chronic neck pain - Hypertriglyceridemia Surgical History: - Transurethral resection of the prostat e (TURP) for BPH Medications: - Allopurinol 100 mg daily for gout - Aspirin 81 mg as antiplatelet therapy for CAD - Atorvastatin 80 mg for hyperlipidemia - Colchicine 0.6 mg as needed for gout - Ezetimibe 10 mg for hyperlipidemia - Fenofibrate for hypertriglyceridemia - Hydroxyzine as needed for sleep - Lisinopril 5 mg for hypertension - Metoprolol 100 mg for hypertension - Omeprazole 24 mg for GERD - Methocarbamol 750 mg for neck pain - Testosterone supplementation post BPH surgery - Trazodone 100 mg at night for PTSD/sle ep Diagnostic Results: - Labs: GFR of approximately 56, Creatin ine at about 1.3 indicating CKD Stage 3A - Tests: Nuclear stress test at [facility] (expe rience described) - Procedures: Colonoscopy scheduled with Dr. 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 - Regular exercise, walking four miles d aily - Conscious about diet, regularly trims fat from meat - Utilizes the [place] exclusively for [facility] - History of adverse healthcare experien marlo prompting use of external care for cardiology, urology, and neurology - Current weight at 215 lbs, slight incr ease noticed recently [facility] Medical History (Updated 06/15/25 @ 14:25 by Vincent Santos MD) PTSD (post-traumatic stress disorder) CKD stage 3a, GFR 45-59 ml/min GERD (gastroesophageal reflux disease) Gout Hypertriglyceridemia Hyperlipidemia Hypertension Cervical radiculopathy at C5 Surgical History (Updated 05/01/25 @ 13:44 by Chey Scanlon [facility]) Stented coronary artery History of colonoscopy (~12/30/17) Family History Mother No problems noted. Father No problems noted. Social History (Updated 05/01/25 @ 13:44 by Chey Scanlon [facility]) Housing: Apartment Alcohol intake: never Patient Tobacco Use Status: Former Tobacco user Years Smoked: 25 years e-Cigarette/Vaping Use: Never Used service: Yes Current occupational status: retired Cognitive needs: No Hearing needs: No Vision needs: Yes (rx glasses) Questionnaire Thrive Questionnaire Date Thrive assessed: 02/09/25 IVORY-7 AMB Questionnaire IVORY-7 Date IVORY - 7 assessed: 02/09/25 Source: Developed by Drs. Srinath Collins, Abbey Rico, Sulaiman Estrada and colleagues, with an educational gavino from [employer]. Review of Systems Const Details: - Cardiovascular: Denies current chest pain, previous history of CAD - Renal: Reports CKD Stage 3A - Gastrointestinal: Scheduled colonoscopy, history of GERD - Musculoskeletal: Reports chronic neck pain - Psychiatric: Reports PTSD and issues with sleep - Neurological: Denies other symptoms but indicates prior neck-related problems - Respiratory: Denies any current respiratory issues All systems reviewed & are unremarkable except as reviewed in HPI and above Physical exam (Primary Care) Vital Signs: Last Vital Signs Temp 97.7 F 06/15/25 14:04 Pulse 52 06/15/25 14:04 Resp 18 06/15/25 14:04 BP 132/74 06/15/25 14:04 Pulse Ox 98 06/15/25 14:04 Oxygen Delivery Method Room Air 06/15/25 14:04 BMI result Body Mass Index 30.0 Tobacco/Smoking Status: Tobacco use Status Tobacco use date assessed 02/09/25 06/15/25 13:45 Patient Tobacco Use Status Former Tobacco user 06/15/25 13:45 e-Cigarette/Vaping Use Never Used 06/15/25 14:07 Thrive Assessment: Date of Thrive Assessment Date Thrive assessed 02/09/25 06/15/25 13:45 Const Other: General: +Alert and oriented, Well nourished, No acute distress. Eye: Pupils are equal, round and reactive to light, Intact accommodation, Extraocular movements are intact, Normal conjunctiva, Vision unchanged. HENT: Normocephalic, Atraumatic, Tympanic membranes are clear, Normal hearing, Oral mucosa is moist, No pharyngeal erythema, Ear canals patent. Respiratory: Lungs CTA bilaterally, No wheeze, Respirations are non-labored. Cardiovascular: Regular rate, Regular rhythm, S1 auscultated, S2 auscultated, No murmur, Good pulses equal in all extremities, Normal peripheral perfusion, No edema. Gastrointestinal: Soft, Non-tender, Non-distended, Normal bowel sounds, No organomegaly. Musculoskeletal: Normal range of motion, Normal strength, No tenderness, No swelling, No deformity, Normal gait. Integumentary: Warm, Dry, [place], Intact. Neurologic: Alert, Oriented, Normal sensory, Normal motor function, No focal defects, Cranial Nerves II-XII are grossly intact, Normal deep tendon reflexes. Psychiatric: Cooperative, Appropriate mood & affect, Normal judgment. Coding Level of Care Code Est Pt Level 4 (22748) Complex EM visit Add On G2211 Diagnoses Coronary artery disease involving [place] coronary artery of [place] heart without angina pectoris I25.10 Associated angina: without angina Coronary Disease-Associated Artery/Lesion type: [place] artery [place] vs. transplanted heart: [place] heart Benign prostatic hyperplasia, unspecified whether lower urinary tract symptoms present N40.0 Lower urinary tract symptom presence: unspecified whether lower urinary tract symptoms present Cervical radiculopathy at C5 M54.12 Primary hypertension I10 Hypertension type: primary hypertension Other hyperlipidemia E78.49 Hyperlipidemia type: other hyperlipidemia Hypertriglyceridemia E78.1 Chronic gout without tophus, unspecified cause, unspecified site [id number] Chronicity: chronic Gout etiology: unspecified cause Gout site: unspecified site Presence of tophus: without tophus Gastroesophageal reflux disease without esophagitis K21.9 Esophagitis presence: without esophagitis CKD stage 3a, GFR 45-59 ml/min N18.31 PTSD (post-traumatic stress disorder) F43.10 Assessment & Plan Assessment & Plan (1) CAD (coronary artery disease): Comment: - Continue aspirin 81 mg daily - Maintain atorvastatin therapy given excellent LDL control Code(s): I25.10 - Atherosclerotic heart disease of [place] coronary artery without angina pectoris Category: Medical Qualifiers: Associated angina: without angina Coronary Disease-Associated Artery/Lesion type: [place] artery [place] vs. transplanted heart: [place] heart Qualified Code(s): I25.10 - Atherosclerotic heart disease of [place] coronary artery without angina pectoris (2) BPH (benign prostatic hyperplasia): Comment: - Ongoing testosterone supplementation managed post-surgery Code(s): N40.0 - Benign prostatic hyperplasia without lower urinary tract symptoms Category: Medical Qualifiers: Lower urinary tract symptom presence: unspecified whether lower urinary tract symptoms present Qualified Code(s): N40.0 - Benign prostatic hyperplasia without lower urinary tract symptoms (3) Cervical radiculopathy at C5: Comment: - Continue methocarbamol use - Follow-up with [place] specialists for full evaluation Code(s): M54.12 - Radiculopathy, cervical region Category: Medical (4) Hypertension: Comment: - Continue current antihypertensive regimen of lisinopril and metoprolol - Encourage adherence for renal protection Code(s): I10 - Essential (primary) hypertension Category: Medical Qualifiers: Hypertension type: primary hypertension Qualified Code(s): I10 - Essential (primary) hypertension (5) Hyperlipidemia: Comment: - Continue current lipid-lowering therapy with atorvastatin & ezetimibe - Most [facility] LDL [facility] Code(s): E78.5 - Hyperlipidemia, unspecified Category: Medical Qualifiers: Hyperlipidemia type: other hyperlipidemia Qualified Code(s): E78.49 - Other hyperlipidemia (6) Hypertriglyceridemia: Comment: - Monitor triglyceride response to fenofibrate addition Code(s): E78.1 - Pure hyperglyceridemia Category: Medical (7) Gout: Comment: - Continue allopurinol maintenance - Use colchicine as needed for acute attacks Code(s): M10.9 - Gout, unspecified Category: Medical Qualifiers: Chronicity: chronic Gout etiology: unspecified cause Gout site: unspecified site Presence of tophus: without tophus Qualified Code(s): M1A.9XX0 - Chronic gout, unspecified, without tophus (tophi) (8) GERD (gastroesophageal reflux disease): Comment: - Continue omeprazolev Code(s): K21.9 - Gastro-esophageal reflux disease without esophagitis Category: Medical Qualifiers: Esophagitis presence: without esophagitis Qualified Code(s): K21.9 - Gastro-esophageal reflux disease without esophagitis (9) CKD stage 3a, GFR 45-59 ml/min: Comment: - Monitor renal function regularly - Continue blood pressure management closely - Most recent Creatinine 1.3 Code(s): N18.31 - Chronic kidney disease, stage 3a Category: Medical (10) PTSD (post-traumatic stress disorder): Comment: - Use trazodone at night - Hydroxyzine as needed for additional sleep support Code(s): F43.10 - Post-traumatic stress disorder, unspecified Category: Medical Plan: Healthcare Maintenance: - Advise flu and COVID vaccinations - Recommend continued regular exercise and dietary management - Continue colonoscopy screening Patient was informed and verbally consented to the use of an ambient scribe for clinic note documentation during this visit. 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 The patient will continue follow-[facility] due to previous experiences. His scheduled colonoscopy with Dr. Santamaria will proceed as planned. We discussed the importance of continued exercise and diet control in managing his chronic conditions, noting the influence of lifestyle choices on cardiovascular health. I encouraged the patient to receive his flu and COVID vaccinations at the [facility] or local pharmacy for preventative health. Given his commitment to regular physical activity, the exercise routine is to be maintained to support his cardiovascular and overall health. Patient Instructions: - Continue taking all your medications as directed. - Make sure to attend your scheduled colonoscopy with Dr. Santamaria. - Get your flu and COVID shots at the pharmacy or [facility]. - Maintain your exercise routine and healthy diet. - Keep up with all follow-up appointments as scheduled. - Reach out if you experience any new or worsening symptoms.
[2025-06-15 14:04] VITALS: BP 132/74; PULSE 52; RESP 18; TEMP 36.5; O2SAT 98
== END 2025-06-15 14:26 | disposition home or self-care (01) ==
PROVIDERS: PCP Student in an Organized Health Care Education/Training Program; Visit Provider Student in an Organized Health Care Education/Training Program
DX: I25.10 Atherosclerotic heart disease of native coronary artery without angina pectoris (principal); N40.0 Benign prostatic hyperplasia without lower urinary tract symptoms; M54.12 Radiculopathy, cervical region; I10 Essential (primary) hypertension; E78.49 Other hyperlipidemia; E78.1 Pure hyperglyceridemia; M1A.9XX0 Chronic gout, unspecified, without tophus (tophi); K21.9 Gastro-esophageal reflux disease without esophagitis; N18.31 Chronic kidney disease, stage 3a; F43.10 Post-traumatic stress disorder, unspecified

== ENCOUNTER → 2025-06-15 13:47 | Outpatient (BNVA) | payer MEDICARE, BC, SELFPAY | PROVIDERS: PCP Internal Medicine; Visit Provider Student in an Organized Health Care Education/Training Program | DX: I25.10 Atherosclerotic heart disease of native coronary artery without angina pectoris (principal); N40.0 Benign prostatic hyperplasia without lower urinary tract symptoms; M54.12 Radiculopathy, cervical region; E78.49 Other hyperlipidemia; E78.1 Pure hyperglyceridemia; M1A.9XX0 Chronic gout, unspecified, without tophus (tophi); K21.9 Gastro-esophageal reflux disease without esophagitis; I12.9 Hypertensive chronic kidney disease with stage 1 through stage 4 chronic kidney disease, or unspecified chronic kidney disease; N18.30 Chronic kidney disease, stage 3 unspecified; F43.10 Post-traumatic stress disorder, unspecified; Z79.82 Long term (current) use of aspirin; Z79.899 Other long term (current) drug therapy | CPT/HCPCS: 99212 ==

== ENCOUNTER 2025-06-21 06:08 | Day surgery (SDC) | payer OTHER, SELFPAY ==
--- OUTSIDE RECORDS SUMMARY | 2025-05-12 14:51 | XMS_ITS | Encounter Summary ---
Author Organization [facility] Address [address] [place] [address] [place] [address] Phone Care Team Providers Care Outsole Rounder Name Role Phone Pcp, Unknown Unavailable Unavailable Andrea Roche MD Primary Care Provider + Encounter Details Date Type Department Care Team (Late st Contact Info) Description 02/22/2024 Procedure Pass Echo [facility] [place] [address] [place] [address] Social History Tobacco Use Types Packs/Day Years [...] Description 05/24/2025 12:30 PM EDT Office Visit [facility] [address] [facility] 3rd Floor, [address] [place] [address] Yon Thompson DO [address] [facility] [address] [place] [address] [email or web address] 11/01/2025 11:00 AM EST Office Visit [facility] Department of Neurology [address] [facility], 8th Floor, [address] [place] [address] Donald Dorsey MD [address] [place] [address] [email or web address] documented as of this encounter Visit Diagnoses Not on filedocumented in this encounter Care Teams Outsole Rounder Relationship Specialty Start Date End Date Andrea Roche MD [address] [place] [address] PCP - General Internal Medicine 05/04/20 Pcp, Unknown 04/22/19 documented as of this encounter Additional Source Comments The information contained in this document represents components of the legal health record. It is not the complete legal health record.[facility]
--- OUTSIDE RECORDS SUMMARY | 2025-05-12 14:51 | XMS_ITS | Clinical Summary ---
Author Organization [facility] Address [address] [place] [address] [place], [place] [phone] Phone Care Team Providers Care Magnetic Prospector Name Role Phone Pcp, Unknown Unavailable Unavailable Andrea Roche MD Primary Care Provider + Allergies Active [...] switch to quinolone on d/c Atherosclerosis of [place] co ronary artery of [place] heart without angina pectoris 01/16/2023 Assessment & [...] EDT): LDL was recently checked at the [place] and looked well-controlled Assessment & Plan (01/16/2023 8:55 AM EDT): He is on a statin agent but will need some lab work which I have ordered for him. Encounters Date Type Department Care Team Description 02/13/2025 Transcribe Orders [facility] Neurology [address] [place] [address] Britt Murrieta [place] Paresthesia of skin (Primary [...] Description 05/24/2025 12:30 PM EDT Office Visit [facility] [address] [facility] 3rd Floor, [address] [place] [address] Yon Thompson, [address] [facility] [address] [place] [address] 11/01/2025 11:00 AM EST Office Visit [facility] Department of Neurology [address] [facility], 8th Floor, [address] [place] [address] Donald Dorsey MD [address] [place] [address] [email or web address] Health Maintenance Due Date Last Done Comments DEPRESSION SCREENING 1961 HEPATITIS C SCREENING 1967 COLOGUARD 1994 COLONOSCOPY 1994 COLORECTAL CANCER SCREENING 1994 FIT TEST 1994 FOBT 1994 SIGMOIDOSCOPY 1994 VIRTUAL COLONOSCOPY 1994 PNEUMOCOCCAL VACCINES (50+ years) (1 of 1 - PCV) 1999 Adult Td,Tdap Booster 02/10/2018 02/11/2008 RSV VACCINE (1 - 1-dose 75+ series) 2024 CREATININE LEVEL 02/12/2025 02/13/2024, 03/2024, 02/11/2024, Additional history exists POTASSIUM LEVEL 02/12/2025 02/13/2024, 06/0 03/2024, 02/11/2024, Additional history exists COVID-19 VACCINE ( season) 2025 BLOOD PRESSURE 06/04/2025 12/02/2024 ZOSTER VACCINES Completed [...] EDT) SODIUM 143 133 - 146 mmol/L [facility] CHLORIDE 106 96 - 108 mmol/L [facility] POTASSIUM 3.4 3.3 - 5.1 mmol/L [facility] CO2 26 21 - 35 mmol/L [facility] BUN 17 6 - 19 mg/dL [facility] CREATININE 1.30 0.5 - 1.5 mg/dL [facility] GLUCOSE 109(H) 70 - 99 mg/dL [facility] CALCIUM 9.0 8.4 - 10.3 mg/dL [facility] EGFR 58(L) >59 mL/min/1.7 3m2 [facility] Comment:Estimated glomerular filtration rate calculated using the CKD-EPI refit equation. ANION GAP 14 10 - 20 mmol/L [facility] Blood 02/13/2024 6:26 AM EDT 02/13/2024 6:38 AM EDT Miriam Campbell MD LAB BLOOD ORDERABLES Final Result [facility] [address] [place], [place] [phone] from Last 3 Months or Most Recently Relevant to Health Maintenance Insurance [facility] MEDICARE PART A & B Member Subscriber Plan / Payer (Ef fective 2024-Present) Name:Toribio Moran Member ID:[id number] Relation to Subscriber:Self Name:Toribio Moran Subscriber ID:[id number] Payer ID:[id number] Group ID:Not on file Type:Medicare Address: [employer] [facility] [address] [place] [address] [facility] MEDICARE PART A & B [facility] MEDICARE PART A & B [facility] MEDICARE [facility] A & B [facility] MEDICARE PART A & B [facility] Member Subscriber Plan / Payer (Ef fective 2019-Present) Name:Toribio Moran Relation to Subscriber:Self Name:Toribio Moran Payer ID:[id number] (NAIC) Group ID:Not on file Type:Indemnity Address: [facility] [address] [place] [address] MEDICARE PART A & B [facility] Member Subscriber Plan / Payer (Ef fective 2011-Present) Name:Toribio Moran Relation to Subscriber:Self Name:Toribio Moran Payer ID:[id number] (NAIC) Group ID:[id number] Type:PPO Address: [address] Member Subscriber Plan / Payer (Ef fective 2019-Present) Name:Toribio Moran Relation to Subscriber:Self Name:Toribio Moran Payer ID:[id number] (NAIC) Group ID:Not on file Type:[facility] Address: [facility] [id number] [place] [address] MEDICARE PART A & B [facility] Member Subscriber Plan / Payer (Ef fective 2011-Present) Name:Toribio Moran Relation to Subscriber:Self Name:Toribio Moran Payer ID:[id number] (NAIC) Group ID:[id number] Type:PPO Address: [address] MEDICARE PART A & [place] [address] MEDICARE PART A [place] [id number] [place] [id number] [place] [address] [place] [address] [place] [address] [place] [address] [place] [address] Advance Directives For more information, please contact: [phone] (9AM - 5PM [facility], Thursday-Thursday) * Full Code (Latest Code Status on File) Date Activated Date Inactivated Comments 02/10/2024 10:59 PM Question Answer Comments Code Status Confirmed With: Patient Care Teams Magnetic Prospector Relationship Specialty Start Date End Date Andrea Roche MD [address] [place] [address] PCP - General Internal Medicine 05/04/20 Pcp, Unknown 04/22/19 Additional Source Comments The information contained in this document represents components of the legal health record. It is not the complete legal health record.[facility]
--- OUTSIDE RECORDS SUMMARY | 2025-05-12 14:51 | XMS_ITS | Encounter Summary ---
Author Organization [facility] Address [address] [facility] [address] [place] [address] Phone Care Team Providers Care Rail Detector Car Operator Name Role Phone Unknown, Unknown Primary Care Provider Carmen mclaughlin Pcp, Unknown Unavailable Unavailable Andrea Roche MD Primary Care Provider + Encounter Details Date Type Department Care Team (Late st Contact Info) Description 05/03/2019 Ancillary Orders [facility] Department of Neurology [address] [place], [place] [address] [place] [address] Mendoza Mathews MD [address] [place] [address] [email or web address] Social History Tobacco Use Types Packs/Day Years [...] Description 05/24/2025 12:30 PM EDT Office Visit [facility] [address] [place] [address] 3rd Floor, [address] [place], [place] [phone] Yon Thompson DO [address] [facility] [address] [place] [address] [email or web address] 11/01/2025 11:00 AM EST Office Visit [facility] Department of Neurology [address] [facility], 8th Floor, [address] [place] [address] Donald Dorsey MD [address] [place] [address] [email or web address] documented as of this encounter Visit Diagnoses Not on filedocumented in this encounter Additional Health Concerns Infection Onset Date Last Indicated Resolved Time CoV-Risk Comment:Per note documentation 02/10/2024 02/10/2024 7:28 AM EDT CDiff-Risk 02/10/2024 02/10/2024 02/11/2024 12:1 4 AM EDT documented as of this encounter Care Teams Rail Detector Car Operator Relationship Specialty Start Date End Date Unknown, Unknown, MD PCP - General 04/22/19 05/03/20 Andrea Roche MD [address] [place] [address] PCP - General Internal Medicine 05/04/20 Pcp, Unknown 04/22/19 documented as of this encounter Additional Source Comments The information contained in this document represents components of the legal health record. It is not the complete legal health record.[facility]
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
--- OUTSIDE RECORDS SUMMARY | 2025-05-12 14:51 | XMS_ITS | Encounter Summary ---
Author Organization [facility] Address [address] [facility] [address] [place], [place] [id number] Phone Care Team Providers Care Sprinkler Fitter Helper Name Role Phone Pcp, Unknown Unavailable Unavailable Andrea Roche MD Primary Care Provider + Encounter Details Date Type Department Care Team (Late st Contact Info) Description 02/10/2024 Procedure Pass [facility], Ct Scan - [address] [address] Social History Tobacco Use Types Packs/Day Years [...] 4:44 PM EDT Toribio Day RN * [place]der Suicide Severity Rating Scale (Screener/Recent Self-Report) Question [...] Description 05/24/2025 12:30 PM EDT Office Visit [facility] [address] [place] [address] 3rd Floor, [address] [place] [address] Yon Thompson DO [address] [place] [address] [place] [address] [email or web address] 11/01/2025 11:00 AM EST Office Visit [facility] Department of Neurology [address] [place] [address], 8th Floor, [address] [place] [address] Donald Dorsey MD [address] [place] [address] [email or web address] documented as of this encounter Visit Diagnoses Not on filedocumented in this encounter Additional Health Concerns Infection Onset Date Last Indicated Resolved Time CoV-Risk Comment:Per note documentation 02/10/2024 02/10/2024 7:28 AM EDT CDiff-Risk 02/10/2024 02/10/202402/11/2024 12:1 4 AM EDT documented as of this encounter Care Teams Sprinkler Fitter Helper Relationship Specialty Start Date End Date Andrea Roche MD [address] [place] [address] PCP - General Internal Medicine 05/04/20 Pcp, Unknown 04/22/19 documented as of this encounter Additional Source Comments The information contained in this document represents components of the legal health record. It is not the complete legal health record.[facility]
--- OUTSIDE RECORDS SUMMARY | 2025-05-12 14:51 | XMS_ITS | Encounter Summary ---
Author Organization [facility] Address [address] [place] [address] Phone Care Team Providers Care Oyster Planter Name Role Phone Unknown, Unknown Primary Care Provider Carmen mclaughlin Pcp, Unknown Unavailable Unavailable Andrea Roche MD Primary Care Provider + Reason for Referral * MRI/CAT Scan - Closed Specialty Diagnoses / Procedures Referred By Contac t Referred To Contact Radiology Diagnoses Research subject Procedures PET/CT Limited Other/Research Mendoza Mathews MD Phone: tel: fax: [email or web address] Referral ID Status Reason Start Date Expiration Date Visits Re quested Visits Authorized [id number] Closed 05/03/2019 05/02/2020 1 1 Encounter Details Date Type Department Care Team (Late st Contact Info) Description 05/03/2019 Ancillary Orders [facility], [place] [address] [place] [address], 2nd [place] [address] Mendoza Mathews MD [address] [place] [address] [email or web address] Research subject Social History Tobacco Use Types [...] Description 05/24/2025 12:30 PM EDT Office Visit [facility] 3[address] [facility], [address] [place] [address] Yon Thompson DO [address] [facility] [address] [place] [address] 11/01/2025 11:00 AM EST Office Visit [facility] Department of Neurology [address] [facility], 8th Floor, [address] [place] [address] Donald Dorsey MD [address] [place] [address] [email or web address] documented as of this encounter Results * [...] documented as of this encounter Care Teams Oyster Planter Relationship Specialty Start Date End Date Unknown, Unknown, MD PCP - General 04/22/19 05/03/20 Andrea Roche MD [address] [place] [address] PCP - General Internal Medicine 05/04/20 Pcp, Unknown 04/22/19 documented as of this encounter Additional Source Comments The information contained in this document represents components of the legal health record. It is not the complete legal health record.[facility]
--- NOTE | 2025-06-16 10:45 | HO.ANESPROP2 ---
Documented by User: Giana Viramontes NP 06/16/25 10:54 HPI - Anesthesia Eval Consult details Narrative: 74 yr old male for colonoscopy CAD: -Underwent angioplasty in 1993 and PCI to right coronary artery in 2006 -Recently established with [facility], saw Dr. Norwood 04/2025, who stated He is intermediate risk for perioperative complications and can proceed with colonoscopy . -Underwent myocardial perfusion exercise study 10/2024 showing mild ischemia seen in inferior lateral wall along with infarction. LFEF 58%; Dr. Norwood reviewed & commented I think these findings are related to the [employer] of the left circumflex artery , pt reports walking 4 miles several times weekly without symptoms. [facility] Active Problems Active Problems: All Active Problems PTSD (post-traumatic stress disorder) (Acute) CKD stage 3a, GFR 45-59 ml/min (Acute) GERD (gastroesophageal reflux disease) (Acute) Gout (Acute) Hypertriglyceridemia (Acute) Hyperlipidemia (Acute) Hypertension (Acute) Preop cardiovascular exam (Acute) Numbness and tingling of both upper extremities (Acute) Cervical radiculopathy at C5 (Acute) Abnormal nuclear stress test (Acute) BPH (benign prostatic hyperplasia) (Acute) History of [place] (myocardial infarction) (Acute) CAD (coronary artery disease) (Acute) Past Medical History Medical History Myocardial infarction BPH (benign prostatic hyperplasia) TAMMY (obstructive sleep apnea) PTSD (post-traumatic stress disorder) CKD stage 3a, GFR 45-59 ml/min GERD (gastroesophageal reflux disease) Gout Hypertriglyceridemia Hyperlipidemia Hypertension Cervical radiculopathy at C5 Family History Family History Mother No problems noted. Father No problems noted. Surgical History Surgical History History of prostate surgery Stented coronary artery History of colonoscopy (~12/30/17) Social History Social History (Updated 05/01/25 @ 13:44 by Chey Scanlon CMA) Housing: Apartment Are you a primary healthcare network pricing consultant to a significant other at home: No Do you presently have visiting nurse or other home services: No Alcohol intake: never Patient Tobacco Use Status: Former Tobacco user Years Smoked: 25 years e-Cigarette/Vaping Use: Never Used Have you been hit, kicked, punched, or otherwise hurt by someone within the past year? If so, by whom?: No Are you DNR?: No Advance Directives: No Advance Directives Information Provided: Yes Poor oral hygiene: No service: Yes Current occupational status: retired Cognitive needs: No Hearing needs: No Vision needs: Yes (rx glasses) Meds Allergies Allergy/AdvReac Type Severity Reaction Status Date / Time No Known Allergies (No Known Allergy Verified 06/21/25 06:37 Allergies*) Home Medications ?Medication ?Instructions ?Recorded ?Confirmed ?Last Taken ?Type allopurinol 100 mg tablet 100 mg PO DAILY 02/09/25 06/16/25 Unknown History omeprazole 20 mg capsule,delayed 20 mg PO DAILY 02/09/25 06/16/25 Unknown History release testosterone 50 mg/5 gram (1 %) 1 tube transdermal QAM 02/09/25 06/16/25 Unknown History transdermal gel aspirin 81 mg tablet,delayed 81 mg PO DAILY 05/01/25 06/16/25 06/19/25 History release (Adult Low Dose Aspirin) atorvastatin 80 mg tablet (Lipitor) 80 mg PO BEDTIME 05/01/25 06/16/25 Unknown History colchicine 0.6 mg tablet 0.6 mg PO DAILY 05/01/25 06/16/25 Unknown History fenofibrate nanocrystallized 145 48 mg PO DAILY 05/01/25 06/16/25 Unknown History mg tablet lisinopril 5 mg tablet 5 mg PO DAILY 05/01/25 06/16/25 Unknown History methocarbamol 750 mg tablet 750 mg PO BID PRN Pain 05/01/25 06/16/25 Unknown History metoprolol succinate 100 mg 100 mg PO BID 05/01/25 06/16/25 06/21/25 History tablet,extended release 24 hr sildenafil 100 mg tablet (Viagra) 100 mg PO DAILY PRN Erectile 05/01/25 06/16/25 Unknown History Dysfunction trazodone 100 mg tablet 50 mg PO BEDTIME PRN Insomnia 05/01/25 06/16/25 Unknown History fluticasone propionate 250 1 inh inhalation BID 06/15/25 06/15/25 Unknown History mcg/actuation blister powder for inhalation finasteride 5 mg tablet 5 mg PO DAILY 06/16/25 06/16/25 Unknown History hydroxyzine pamoate 25 mg capsule 25 mg PO BID PRN Anxiety 06/16/25 06/16/25 Unknown History tamsulosin 0.4 mg capsule 0.4 mg PO DAILY 06/16/25 06/16/25 Unknown History venlafaxine 75 mg tablet 75 mg PO DAILY 06/16/25 06/16/25 Unknown History Exam Narrative Narrative: EKG 04/2025 Sinus gilma with occasional PVCs, rate 57 T wave abnormality, cannot rule out anterior infarct ECHO 03/2024 EF 65-70%. Grade I diastolic impairment and mild concentric LVH. There were no regional wall motion abnormalities on study. Normal RV size and function. Trileaflet aortic valve with no evidence of aortic stenosis, the ascending aortic root is normal in size. Trace to mild mitral and tricuspid insufficiency, the PA pressure is 25-30 mmHg. Documented by User: Duong Reynoso MD 06/21/25 07:19 [facility] Past Medical History Medical History Myocardial infarction BPH (benign prostatic hyperplasia) TAMMY (obstructive sleep apnea) PTSD (post-traumatic stress disorder) CKD stage 3a, GFR 45-59 ml/min GERD (gastroesophageal reflux disease) Gout Hypertriglyceridemia Hyperlipidemia Hypertension Cervical radiculopathy at C5 Family History Family History Mother No problems noted. Father No problems noted. Family history of problems with anesthesia: No Surgical History Surgical History History of prostate surgery Stented coronary artery History of colonoscopy (~12/30/17) History of Problems with Anesthesia: No Social History Social History (Updated 05/01/25 @ 13:44 by Chey Scanlon CMA) Housing: Apartment Are you a primary healthcare network pricing consultant to a significant other at home: No Do you presently have visiting nurse or other home services: No Alcohol intake: never Patient Tobacco Use Status: Former Tobacco user Years Smoked: 25 years e-Cigarette/Vaping Use: Never Used Have you been hit, kicked, punched, or otherwise hurt by someone within the past year? If so, by whom?: No Are you DNR?: No Advance Directives: No Advance Directives Information Provided: Yes Poor oral hygiene: No service: Yes Current occupational status: retired Cognitive needs: No Hearing needs: No Vision needs: Yes (rx glasses) Meds Allergies Allergy/AdvReac Type Severity Reaction Status Date / Time No Known Allergies (No Known Allergy Verified 06/21/25 06:37 Allergies*) Home Medications ?Medication ?Instructions ?Recorded ?Confirmed ?Last Taken ?Type allopurinol 100 mg tablet 100 mg PO DAILY 02/09/25 06/16/25 Unknown History omeprazole 20 mg capsule,delayed 20 mg PO DAILY 02/09/25 06/16/25 Unknown History release testosterone 50 mg/5 gram (1 %) 1 tube transdermal QAM 02/09/25 06/16/25 Unknown History transdermal gel aspirin 81 mg tablet,delayed 81 mg PO DAILY 05/01/25 06/16/25 06/19/25 History release (Adult Low Dose Aspirin) atorvastatin 80 mg tablet (Lipitor) 80 mg PO BEDTIME 05/01/25 06/16/25 Unknown History colchicine 0.6 mg tablet 0.6 mg PO DAILY 05/01/25 06/16/25 Unknown History fenofibrate nanocrystallized 145 48 mg PO DAILY 05/01/25 06/16/25 Unknown History mg tablet lisinopril 5 mg tablet 5 mg PO DAILY 05/01/25 06/16/25 Unknown History methocarbamol 750 mg tablet 750 mg PO BID PRN Pain 05/01/25 06/16/25 Unknown History metoprolol succinate 100 mg 100 mg PO BID 05/01/25 06/16/25 06/21/25 History tablet,extended release 24 hr sildenafil 100 mg tablet (Viagra) 100 mg PO DAILY PRN Erectile 05/01/25 06/16/25 Unknown History Dysfunction trazodone 100 mg tablet 50 mg PO BEDTIME PRN Insomnia 05/01/25 06/16/25 Unknown History fluticasone propionate 250 1 inh inhalation BID 06/15/25 06/15/25 Unknown History mcg/actuation blister powder for inhalation finasteride 5 mg tablet 5 mg PO DAILY 06/16/25 06/16/25 Unknown History hydroxyzine pamoate 25 mg capsule 25 mg PO BID PRN Anxiety 06/16/25 06/16/25 Unknown History tamsulosin 0.4 mg capsule 0.4 mg PO DAILY 06/16/25 06/16/25 Unknown History venlafaxine 75 mg tablet 75 mg PO DAILY 06/16/25 06/16/25 Unknown History Exam Exam Date and Time: 06/21/25 Narrative Narrative: EKG 04/2025 Sinus gilma with occasional PVCs, rate 57 T wave abnormality, cannot rule out anterior infarct ECHO 03/2024 EF 65-70%. Grade I diastolic impairment and mild concentric LVH. There were no regional wall motion abnormalities on study. Normal RV size and function. [place]leaf[place] aortic valve with no evidence of aortic stenosis, the ascending aortic root is normal in size. Trace to mild mitral and tricuspid insufficiency, the PA pressure is 25-30 mmHg. m.i. 1994 with stent 2006 Airway Mallampati Class: III TM Dist: >3cm Neck ROM: Limited (poor extension) Loose/Missing/Broken Teeth: Yes Heart: rrr Lungs: ctab Assessment and Plan Assessment Anesthesia Assessment: Anesthesia Plan Discussed and Chart Reviewed Final Anesthetic Review Family History of Problems with Anesthesia: No History of Problems with Anesthesia: No NPO: Yes ASA Class: III Final Preanesthetic Review: No Changes in Pt Med Stat, Meds/Allgs Chart Reviewed, Consent Obtained/Reviewed and Anes Risks/Benef Reviewed Patient Risk: Intermediate Procedure Risk: Low Anesthetic Plan Anesthetic Plan: MAC: Disposition: Standard PACU
[2025-06-16 13:18] VITALS: BMI 29.8
[2025-06-21 06:36] VITALS: BP 147/82; PULSE 66; RESP 18; TEMP 36.7; O2SAT 97
[2025-06-21] MEDS: Lactated Ringers 1,000 ML 100 ML IVCONT (06:43)
[2025-06-21 08:37] VITALS: BP 117/57; PULSE 55; RESP 16; TEMP 36.3; O2SAT 96
[2025-06-21 09:01] VITALS: BP 134/78; PULSE 56; RESP 13; TEMP 36.3; O2SAT 97
--- NOTE | 2025-06-21 10:44 | OP_ITS ---
DATE OF SERVICE: 06/21/2025 SURGEON: Srinath Santamaria MD INDICATIONS: The patient presents for evaluation of colorectal cancer screening and prior history of colon polyps. Full consent has been obtained from him for this, including risks of bleeding and perforation. PREOPERATIVE DIAGNOSIS: POSTOPERATIVE DIAGNOSIS: PROCEDURE PERFORMED: ESTIMATED BLOOD LOSS: COMPLICATIONS: ANESTHESIA: Medication used, monitored anesthesia care. ASSISTANTS: SPECIMENS: PREOPERATIVE DIAGNOSES: Colorectal cancer screening and personal history of colon polyps. POSTOPERATIVE DIAGNOSES: Colorectal cancer screening and personal history of colon polyps, multiple colon polyps, nonbleeding angiodysplasias, diverticulosis, internal and external hemorrhoids. PROCEDURES PERFORMED: Colonoscopy to the cecum and terminal ileum with multiple cold snare polypectomies, biopsy and removal of polyp, and 2 hot snare polypectomies with placement of a total of 3 resolution clips. DESCRIPTION OF PROCEDURE: The patient was placed in the left lateral decubitus position. The digital rectal exam revealed some external hemorrhoids. The [employer] video pediatric colonoscope was entered into the rectum and advanced easily to the cecum. Once in the cecum, I identified normal-appearing cecal pouch other than several nonbleeding less than 10 mm angiodysplasias. The appendiceal orifice appeared normal. The terminal ileum was cannulated and appeared normal. The scope was withdrawn back in the colon. The ileocecal valve appeared normal. The scope was slowly withdrawn assessing all mucosal surfaces carefully. Preparation was excellent. In the ascending colon were multiple polyps ranging from 3 mm to 1.2 cm. The 1.2 cm polyp was removed by hot snare polypectomy and recovered by suction. The polypectomy site appeared clean, without any sign of residual polyp nor bleeding. Two resolution clips were applied to the polypectomy site with good deployment and good hemostasis. The other polyps between 5 and 8 mm in size were removed by cold snare polypectomy and recovered by suction. The polypectomy sites appeared clean, without any sign of residual polyp nor significant bleeding. The 3mm polyp was removed with a cold biopsy forceps. At the transverse colon was a flat 6 mm polyp, which was removed by cold snare polypectomy but not recovered. The polypectomy site appeared clean, without any sign of residual polyp nor significant bleeding. At 60 cm were 2 approximately 6 mm polyps, both of which were removed by cold snare polypectomy and recovered by suction. The polypectomy sites appeared clean, without any sign of residual polyp nor significant bleeding. At 30 cm was an approximately 1.2 cm polyp removed by hot snare polypectomy and recovered by suction. The polypectomy site appeared clean, without any sign of residual polyp nor bleeding. A single resolution clip was applied to the polypectomy site with good deployment and good hemostasis. I did not visualize any other polyps, colitis, nor angiodysplasia. There was a moderate amount of sigmoid diverticulosis. In the rectum, scope was retroflexed visualizing some internal hemorrhoids, but no other pathology. The rectal mucosa appeared normal. The scope was straightened and withdrawn from the patient. He tolerated the procedure well and was returned to the recovery area in stable condition. IMPRESSION: 1. Multiple colon polyps. 2. Cecal angiodysplasias. 3. Diverticulosis. 4. Internal and external hemorrhoids. PLAN: The results of the pathology will be checked. Given these findings, I would recommend a repeat colonoscopy in 3 years for further screening and surveillance. He was advised not to use any NSAIDs for 1 week. He was advised to resume his aspirin in 48 hours. He was instructed to check with his MRI facility in regard to the placement of today's clips as he is scheduled for a MRI of his neck in July. He will otherwise see me as needed. MD LESLI Owusu/NERI / [phone] LENKA
--- NOTE | 2025-06-22 00:14 | P.BOP_ITS ---
Brief Operative Note Date of Service: 06/21/25 Pre-op diagnosis: Screening Post-op diagnosis: other (Polyps) Procedure: Colonoscopy to the cecum and TI with bx/removal of polyp, cold snare polypectomies, and hot snare polypectomies, with placement of Resolution clips in AC and at 30cm Surgeon: Srinath Santamaria MD Anesthesia: MAC Was an Multiple Drum Sander Helper used for this Procedure?: No Estimated blood loss (mL): 2.0 Pathology: other (A. Polyps at 60cm B. Ascending colon polyps C. Polyp at 30cm) Condition: stable Disposition: PACU
== END 2025-06-21 09:56 | disposition home or self-care (01) ==
PROVIDERS: PCP Internal Medicine; Visit Provider Internal Medicine
PROC: 0DJD8ZZ Inspection of Lower Intestinal Tract, Via Natural or Artificial Opening Endoscopic (ICD-10-PCS; CPT 45378; principal; 2025-06-21 07:30)
DX: Z12.11 Encounter for screening for malignant neoplasm of colon (principal); Z86.0101 Personal history of adenomatous and serrated colon polyps; D12.2 Benign neoplasm of ascending colon; D12.4 Benign neoplasm of descending colon; D12.5 Benign neoplasm of sigmoid colon; K55.20 Angiodysplasia of colon without hemorrhage; K57.30 Diverticulosis of large intestine without perforation or abscess without bleeding; K64.8 Other hemorrhoids; K64.4 Residual hemorrhoidal skin tags; K21.9 Gastro-esophageal reflux disease without esophagitis; I10 Essential (primary) hypertension; E78.5 Hyperlipidemia, unspecified; I25.2 Old myocardial infarction; Z95.5 Presence of coronary angioplasty implant and graft; N40.0 Benign prostatic hyperplasia without lower urinary tract symptoms; M10.9 Gout, unspecified; G47.33 Obstructive sleep apnea (adult) (pediatric); F41.9 Anxiety disorder, unspecified; F43.10 Post-traumatic stress disorder, unspecified; Z79.82 Long term (current) use of aspirin; Z79.899 Other long term (current) drug therapy; Z98.890 Other specified postprocedural states
CPT/HCPCS: 45385; 45380; 88305; J2704